=== PATIENT | male | born 1975 | race African-American/Black ===

== ENCOUNTER 2022-06-04 21:57 | Emergency (ER) | payer OTHER ==
[2022-06-04] MEDS ORDERED: DEXTROSE 50% SYRINGE 50 ML IVP STA (22:10)
[2022-06-04 22:12] LABS: Glucose,Whole Blood 59 mg/dL (70-110)
[2022-06-04 22:23] LABS: Basophils # (A) 0.1 k/uL (0-0.2); Basophils % (A) 0 %; Eosinophils # (A) 0.2 k/uL (0-0.7); Eosinophils % (A) 1 %; HCT 26.2 % (39.0-53.0); HGB 7.9 gm/dL (13.0-17.5); Hypochromasia Marked; Lymphocytes # (A) 1.1 k/uL (1.0-4.8); Lymphocytes % (A) 6 %; MCV 96.6 fL (80.0-100.0); Mean Platelet Volume 7.6; Monocytes # (A) 0.8 k/uL (0-1.0); Monocytes % (A) 4 %; Neutrophils # (A) 15.8 k/uL (1.3-7.7); Neutrophils % (A) 87 %; Platelet Count 609 k/uL (150-450); Poikilocytosis Slight; RBC 2.71 m/uL (4.30-5.90); RDW 15.5 % (11.5-15.5); WBC 18.2 k/uL (3.8-10.6)
[2022-06-04 22:32] LABS: Albumin 3.2 g/dL (3.5-5.0); Calcium 8.3 mg/dL (8.4-10.2); Magnesium 1.4 mg/dL (1.6-2.3); Potassium 5.4 mmol/L (3.5-5.1); Total Bilirubin 0.3 mg/dL (0.2-1.3); Total Protein 6.8 g/dL (6.3-8.2)
--- NOTE | 2022-06-04 22:41 | XR ---
EXAMINATION TYPE: XR chest 2V DATE OF EXAM: 06/04/2022 COMPARISON: NONE HISTORY: Difficulty breathing TECHNIQUE: 2 views FINDINGS: There is some minimal linear density at the left lung base. There is right central venous c atheter with the tip in the superior vena cava. Heart size is normal. No heart failure seen. Bony tho rax is intact IMPRESSION: There is some minimal atelectasis at the left lung base. Normal heart.
[2022-06-04 22:58] LABS: INR 1.1 (<1.2); Partial Thromboplastin Time 26.9 sec (22.0-30.0); Prothrombin Time 11.7 sec (9.0-12.0)
--- NOTE | 2022-06-04 23:00 | ED ---
General Adult HPI - General Chief complaint: Recheck/Abnormal Lab/Rx Stated complaint: diabetic Time Seen by Provider: 06/04/22 22:05 Source: patient Mode of arrival: EMS Limitations: no limitations - History of Present Illness Initial comments: 47-year-old male with past medical history of diabetes, end-stage renal disease on hemodialysis with recent bowel resection who presents to the emergency department with hypoglycemia. His father is at bedside and helps provide history. Patient recently had bowel resection done in April. States that since he has been discharged home that he has had a decreased appetite. This morning the patient is a small breakfast. He then ended up taking his insulin and 1 chopping with his brother. He did not have anything to eat while shopping. He came home and fell asleep on the couch. Father reports that he yelled out from the couch that he did not feel well. Father found him to be extremely diaphoretic. He realized that he must of had low blood sugar and therefore called EMS. They found the patient to have a glucose of 51. They inserted a left EJ and gave the patient 2 amp of D50. Repeat Accu-Chek was 161. Patient is supposed to wear attacks, however states that since he has been discharged from the hospital he has not been wearing it. He denies any other symptoms. No fevers. No abdominal pain. No vomiting. He denies chest pain or shortness of breath. He has not missed any dialysis sessions. No other alleviating, precipitating or modifying factors - Related Data Previous Rx's Medication Instructions Recorded Magnesium Oxide [Mag-Ox] 400 mg PO DAILY #30 tablet 06/05/22 Allergies Allergy/AdvReac Type Severity Reaction Status Date / Time No Known Allergies Allergy Verified 06/04/22 22:08 Review of Systems ROS Statement: Those systems with pertinent positive or pertinent negative responses have been documented in the HPI. ROS Other: All systems not noted in ROS Statement are negative. Past Medical History Past Medical History: Diabetes Mellitus, Dialysis, Hypertension History of Any Multi-Drug Resistant Organisms: None Reported Past Surgical History: Hernia Repair, Orthopedic Surgery Additional Past Surgical History / Comment(s): left bka, bowel resection Past Psychological History: No Psychological Hx Reported Smoking Status: Never smoker Past Alcohol Use History: None Reported Past Drug Use History: None Reported General Exam Limitations: no limitations General appearance: alert, in no apparent distress Head exam: Present: atraumatic, normocephalic, normal inspection ENT exam: Present: mucous membranes dry Neck exam: Present: normal inspection. Absent: tenderness, meningismus, lymphadenopathy Respiratory exam: Present: normal lung sounds bilaterally. Absent: respiratory distress, wheezes, rales, rhonchi, stridor Cardiovascular Exam: Present: regular rate, normal rhythm, normal heart sounds. Absent: systolic murmur, diastolic murmur, rubs, gallop, clicks Extremities exam: Present: other (left bka) Neurological exam: Present: alert, oriented X3, CN II-XII intact Course Vital Signs 06/04/22 06/05/22 22:00 02:06 Temperature 97.9 F 98.6 F Pulse Rate 96 78 Respiratory 18 16 Rate Blood Pressure 138/74 132/82 O2 Sat by Pulse 95 99 Oximetry EKG Findings - EKG Comments: EKG Findings:: EKG interpreted by myself demonstrates sinus rhythm with rate of 94. MI interval 146. QRS 90. QTC of 387. No acute ST segment elevations or depressions. EKG interpreted by myself Medical Decision Making - Medical Decision Making Upon arrival patient was placed into room 5. A thorough history and physical exam was performed. We did check the patient's blood sugar upon arrival it was 59. He was given an additional amp of dextrose. Laboratory studies are cond ucted. Patient does have a chest x-ray performed. Laboratory studies reveal a white count of 18.2. Hemoglobin of 7.9. Creatinine 9.6. Also are discussed with the patient. He does eat a sandwich and some chips. He drinks some juice. Glucose remains 80-90 and the patient feels much improved. I did discuss the concern for the white count of 18.2. He denies any fevers, nausea, vomiting. States that he has been anemic after his surgery. Patient would like to go home at this time. He has an appointment to follow up with a surgeon on Monday. Instructed that they need to follow up to have repeat laboratory studies conducted. His magnesium was 1.4 and therefore I did give him 1 g and placed him on magnesium supplements. He is instructed to return for any new or worsening symptoms including fevers, fatigue or abdominal pain. Patient was agreeable to this and he was discharged home in stable condition - Lab Data Result diagrams: 06/04/22 22:02 12/10/22 22:02 Lab Results 06/04/22 06/04/22 06/04/22 Range/Units 22:01 22:02 22:02 WBC 18.2 H (3.8-10.6) k/uL RBC 2.71 L (4.30-5.90) m/uL Hgb 7.9 L (13.0-17.5) gm/dL Hct 26.2 L (39.0-53.0) % MCV 96.6 (80.0-100.0) fL MCH 29.0 (25.0-35.0) pg MCHC 30.0 L (31.0-37.0) g/dL RDW 15.5 (11.5-15.5) % Plt Count 609 H (150-450) k/uL MPV 7.6 Neutrophils % 87 % Lymphocytes % 6 % Monocytes % 4 % Eosinophils % 1 % Basophils % 0 % Neutrophils # 15.8 H (1.3-7.7) k/uL Lymphocytes # 1.1 (1.0-4.8) k/uL Monocytes # 0.8 (0-1.0) k/uL Eosinophils # 0.2 (0-0.7) k/uL Basophils # 0.1 (0-0.2) k/uL Hypochromasia Marked Poikilocytosis Slight PT 11.7 (9.0-12.0) sec INR 1.1 (<1.2) APTT 26.9 (22.0-30.0) sec Sodium (137-145) mmol/L Potassium (3.5-5.1) mmol/L Chloride (98-107) mmol/L Carbon Dioxide (22-30) mmol/L Anion Gap mmol/L BUN (9-20) mg/dL Creatinine (0.66-1.25) mg/dL Est GFR (CKD-EPI)AfAm (>60 ml/min/1.73 sqM) Est GFR (CKD-EPI)NonAf (>60 ml/min/1.73 sqM) Glucose (74-99) mg/dL POC Glucose (mg/dL) 59 L (70-110) mg/dL POC Glu Helicopter Repairer ID Ruby Araujo Plasma Lactic Acid Campbell (0.7-2.0) mmol/L Calcium (8.4-10.2) mg/dL Magnesium (1.6-2.3) mg/dL Total Bilirubin (0.2-1.3) mg/dL AST (17-59) U/L ALT (4-49) U/L Alkaline Phosphatase (38-126) U/L Troponin I (0.000-0.034) ng/mL NT-Pro-B Natriuret Pep pg/mL Total Protein (6.3-8.2) g/dL Albumin (3.5-5.0) g/dL 06/04/22 06/04/22 06/04/22 Range/Units 22:02 22:02 22:02 WBC (3.8-10.6) k/uL RBC (4.30-5.90) m/uL Hgb (13.0-17.5) gm/dL Hct (39.0-53.0) % MCV (80.0-100.0) fL MCH (25.0-35.0) pg MCHC (31.0-37.0) g/dL RDW (11.5-15.5) % Plt Count (150-450) k/uL MPV Neutrophils % % Lymphocytes % % Monocytes % % Eosinophils % % Basophils % % Neutrophils # (1.3-7.7) k/uL Lymphocytes # (1.0-4.8) k/uL Monocytes # (0-1.0) k/uL Eosinophils # (0-0.7) k/uL Basophils # (0-0.2) k/uL Hypochromasia Poikilocytosis PT (9.0-12.0) sec INR (<1.2) APTT (22.0-30.0) sec Sodium 137 (137-145) mmol/L Potassium 5.4 H (3.5-5.1) mmol/L Chloride 101 (98-107) mmol/L Carbon Dioxide 26 (22-30) mmol/L Anion Gap 10 mmol/L BUN 34 H (9-20) mg/dL Creatinine 9.61 H* (0.66-1.25) mg/dL Est GFR (CKD-EPI)AfAm 7 (>60 ml/min/1.73 sqM) Est GFR (CKD-EPI)NonAf 6 (>60 ml/min/1.73 sqM) Glucose 51 L (74-99) mg/dL POC Glucose (mg/dL) (70-110) mg/dL POC Glu Helicopter Repairer ID Plasma Lactic Acid Campbell 1.1 (0.7-2.0) mmol/L Calcium 8.3 L (8.4-10.2) mg/dL Magnesium 1.4 L (1.6-2.3) mg/dL Total Bilirubin 0.3 (0.2-1.3) mg/dL AST 30 (17-59) U/L ALT 21 (4-49) U/L Alkaline Phosphatase 412 H (38-126) U/L Troponin I 0.014 (0.000-0.034) ng/mL NT-Pro-B Natriuret Pep pg/mL Total Protein 6.8 (6.3-8.2) g/dL Albumin 3.2 L (3.5-5.0) g/dL 06/04/22 06/04/22 06/05/22 Range/Units 22:02 23:52 00:39 WBC (3.8-10.6) k/uL RBC (4.30-5.90) m/uL Hgb (13.0-17.5) gm/dL Hct (39.0-53.0) % MCV (80.0-100.0) fL MCH (25.0-35.0) pg MCHC (31.0-37.0) g/dL RDW (11.5-15.5) % Plt Count (150-450) k/uL MPV Neutrophils % % Lymphocytes % % Monocytes % % Eosinophils % % Basophils % % Neutrophils # (1.3-7.7) k/uL Lymphocytes # (1.0-4.8) k/uL Monocytes # (0-1.0) k/uL Eosinophils # (0-0.7) k/uL Basophils # (0-0.2) k/uL Hypochromasia Poikilocytosis PT (9.0-12.0) sec INR (<1.2) APTT (22.0-30.0) sec Sodium (137-145) mmol/L Potassium (3.5-5.1) mmol/L Chloride (98-107) mmol/L Carbon Dioxide (22-30) mmol/L Anion Gap mmol/L BUN (9-20) mg/dL Creatinine (0.66-1.25) mg/dL Est GFR (CKD-EPI)AfAm (>60 ml/min/1.73 sqM) Est GFR (CKD-EPI)NonAf (>60 ml/min/1.73 sqM) Glucose (74-99) mg/dL POC Glucose (mg/dL) 90 82 (70-110) mg/dL POC Glu Helicopter Repairer ID David Interiano Jackie Plasma Lactic Acid Campbell (0.7-2.0) mmol/L Calcium (8.4-10.2) mg/dL Magnesium (1.6-2.3) mg/dL Total Bilirubin (0.2-1.3) mg/dL AST (17-59) U/L ALT (4-49) U/L Alkaline Phosphatase (38-126) U/L Troponin I (0.000-0.034) ng/mL NT-Pro-B Natriuret Pep 58365 pg/mL Total Protein (6.3-8.2) g/dL Albumin (3.5-5.0) g/dL Disposition Clinical Impression: Hypoglycemia, Hypomagnesemia, Leukocytosis, ESRD (end stage renal disease), Anemia Disposition: HOME SELF-CARE Condition: Stable Instructions (If sedation given, give patient instructions): Hypoglycemia in a Person with Diabetes (ED) Additional Instructions: Please follow-up with your doctor and have them recheck your white count, hemoglobin and magnesium level. Please return should you have any new or worsening symptoms to include abdominal pain, fevers or worsening fatigue Prescriptions: Magnesium Oxide [Mag-Ox] 400 mg PO DAILY #30 tablet Is patient prescribed a controlled substance at d/c from ED?: No Referrals: None,Stated [REFERRING] - 1-2 days Time of Disposition: 00:40
[2022-06-04 23:54] LABS: Glucose,Whole Blood 90 mg/dL (70-110)
[2022-06-05] MEDS ORDERED: MAGNESIUM SULFATE-D5W PMX 1 GM in DEXTROSE/WATER 1 100ML.BAG IVPB ONE (00:20)
[2022-06-05 00:41] LABS: Glucose,Whole Blood 82 mg/dL (70-110)
[2022-06-05] MEDS ORDERED: ONDANSETRON 4 MG/2 ML VIAL IVP STA (01:02)
[2022-06-05] MEDS ORDERED: diphenhydrAMINE 50 MG/ML 1 ML VIAL IVP STA (01:04)
[2022-06-05 02:07] VITALS: BP 132/82; PULSE 78; RESP 16; TEMP 98.6
== END 2022-06-05 02:05 | disposition home or self-care (01) ==
LOC: EC 21:57
DX: E11.649 Type 2 diabetes mellitus with hypoglycemia without coma (principal); E83.42 Hypomagnesemia; D72.829 Elevated white blood cell count, unspecified; D64.9 Anemia, unspecified; I12.0 Hypertensive chronic kidney disease with stage 5 chronic kidney disease or end stage renal disease; N18.6 End stage renal disease
CPT/HCPCS: 36415 ×2; 93005; 83880; 80053; 83605; 83735; 84484; 85025; 85610; 85730; 71046; 99284; 96365; 96375 ×3; J1200; J2405; J3475